=== PATIENT | female | born 2000 | race American Indian/Alaskan Native ===

== ENCOUNTER 2019-03-16 15:09 | Emergency (ER) | payer SELFPAY ==
[2019-03-16 15:33] VITALS: BP 138/71
--- NOTE | 2019-03-16 15:41 | Event Note ---
ED Screening Note Date of service: 03/16/19 Time: 15:40 ED Screening Note: 18 y/o female comes in for boils under both arm pits. This initial assessment/diagnostic orders/clinical plan/treatment(s) is/are subject to change based on patients health status, clinical progression and re-assessment by fellow clinical providers in the ED. Further treatment and workup at subsequent clinical providers discretion. Patient/guardian urged not to elope from the ED as their condition may be serious if not clinically assessed and managed. Initial orders include:
--- NOTE | 2019-03-16 16:53 | Emergency Department Report ---
Abscess Boil HPI - HPI Chief Complaint: Skin/Abscess/Foreign Body Stated Complaint: BOILS UNDER ARM/LOSING FEELING IN HAND Time Seen by Provider: 03/16/19 15:40 Duration: >1 Week Location: Upper Extremity History: Yes Pain, No Fever, No Purulent Drainage, No Numbness, No Foreign Body, No Previous History, No Insect Bite HPI: Patient reports abscess in right and left axilliary that started over a week ago. Home Medications: Previous Rx's Medication Instructions Recorded Last Taken Type Clindamycin [Clindamycin CAP] 300 mg PO Q8H #30 cap 03/16/19 Unknown Rx Ibuprofen [Motrin 600 MG tab] 600 mg PO Q8H PRN #30 tablet 03/16/19 Unknown Rx ED Review of Systems ROS: Stated complaint: BOILS UNDER ARM/LOSING FEELING IN HAND Other details as noted in HPI Constitutional: denies: chills, fever Eyes: denies: eye pain, eye discharge, vision change ENT: denies: ear pain, throat pain Respiratory: denies: cough, orthopnea, shortness of breath, SOB with exertion, SOB at rest, stridor, wheezing Cardiovascular: denies: chest pain, palpitations, dyspnea on exertion, orthopnea, edema, syncope, paroxysmal nocturnal dyspnea Endocrine: no symptoms reported Gastrointestinal: denies: abdominal pain, nausea, diarrhea Genitourinary: denies: urgency, dysuria, discharge Musculoskeletal: denies: back pain, joint swelling, arthralgia Skin: rash. denies: lesions Neurological: denies: headache, weakness, paresthesias Psychiatric: denies: anxiety, depression Hematological/Lymphatic: denies: easy bleeding, easy bruising ED Past Medical Hx - Past Medical History Previous Medical History?: No - Surgical History Past Surgical History?: No - Social History Smoking Status: Never Smoker Substance Use Type: Alcohol - Medications Home Medications: Home Medications Medication Instructions Recorded Confirmed Last Taken Type Clindamycin [Clindamycin CAP] 300 mg PO Q8H #30 cap 03/16/19 Unknown Rx Ibuprofen [Motrin 600 MG tab] 600 mg PO Q8H PRN #30 tablet 03/16/19 Unknown Rx ED Abscess Boil Physical Exam - Exam General: Vital signs noted. No distress. Alert and acting appropriately. Size: 2 cm (right axilliary) Exam: Yes Tenderness, Yes Surrounding Cellulites/Erythema, Yes Normal Neurologic Exam, Yes Normal Circulation, No Fluctuance, No Lymphangitis, No Crepitation, No Heart Murmur Exam: Unremarkable ED Course Vital Signs 03/16/19 15:31 Temperature 98.1 F Pulse Rate 85 Respiratory 16 Rate Blood Pressure 138/71 O2 Sat by Pulse 98 Oximetry Critical care attestation.: If time is entered above; I have spent that time in minutes in the direct care of this critically ill patient, excluding procedure time. ED Medical Decision Making - Lab Data Vital Signs 03/16/19 15:31 Temperature 98.1 F Pulse Rate 85 Respiratory 16 Rate Blood Pressure 138/71 O2 Sat by Pulse 98 Oximetry - Medical Decision Making During the course of ED, all other systems were unremarkable except for documentation. Patient was sent home with prescriptions for Clindamycin and Ibuprofen, instructed to apply warm compress to the area three times a day, she verbalized understanding - Differential Diagnosis Cellulitis, Abscess ED Disposition Clinical Impression: Cellulitis of axilla Qualifiers: Laterality: unspecified laterality Qualified Code(s): L03.119 - Cellulitis of unspecified part of limb Disposition: DC-01 TO HOME OR SELFCARE Is pt being admited?: No Does the pt Need Aspirin: No Condition: Stable Instructions: Cellulitis (ED) Additional Instructions: Take medication as directed. Apply warm compresses to the area three times a day Prescriptions: Clindamycin [Clindamycin CAP] 300 mg PO Q8H #30 cap Ibuprofen [Motrin 600 MG tab] 600 mg PO Q8H PRN #30 tablet PRN Reason: Pain Referrals: [facility] [Outside] - 3-5 Days Forms: Work/School Release Form(ED) Time of Disposition: 16:54
== END 2019-03-16 17:40 | disposition home or self-care (01) ==
LOC: ED 15:09
DX: L03.111 Cellulitis of right axilla (principal); L03.112 Cellulitis of left axilla
CPT/HCPCS: 99282